=== PATIENT | male | born 1975 | race Caucasian/White ===

== ENCOUNTER 2024-11-25 18:50 | Emergency (ER) | payer OTHER, SELFPAY ==
--- NOTE | ~2024-11-25 | CT_ITS ---
CT abdomen pelvis w con INDICATION:RUQ pain . COMPARISON: None. TECHNIQUE: Axial images of the abdomen and pelvis were obtained following infusion of 100 mL Isovue 300. Dose optimization technique was utilized. FINDINGS: The lung bases are clear. The liver parenchyma is unremarkable. No intrahepatic mass or ductal dilatation is evident. The gallbladder is unremarkable. The pancreas and spleen are normal in appearance. The adrenal glands are symmetric in size. The kidneys demonstrate symmetric uptake and excretion of contrast. No cystic mass is evident. There is no solid mass. There is no hydronephrosis. The stomach and bowel loops are unremarkable. The appendix is normal in appearance. Fat-containing periumbilical hernia. The bladder and rectum are normal. No free intraperitoneal fluid or air is evident. There is no significant retroperitoneal lymphadenopathy. The aorta, visceral vessels and renal arteries demonstrate normal caliber and patency. The lower thoracic and lumbar vertebrae are in normal alignment. IMPRESSION: No acute abnormality is noted in the abdomen and pelvis. Fat-containing periumbilical hernia. All CT scans at this facility are performed using low dose modulation techniques as appropriate to perform exam including the following: automated exposure control; use of iterative reconstruction technique; adjustment of the mA and/or kV according to patient size (this includes techniques or standardized protocols for targeted exams where dose is matched to indication/reason for exam). Reviewed, dictated and finalized at location S. IMPRESSION: No acute abnormality is noted in the abdomen and pelvis. Fat-containing periumbilical hernia. All CT scans at this facility are performed using low dose modulation techniqu es as appropriate to perform exam including the following: automated exposure c ontrol; use of iterative reconstruction technique; adjustment of the mA and/or kV according to patient size (this includes techniques or standardized protocol s for targeted exams where dose is matched to indication/reason for exam).
[2024-11-25 19:24] VITALS: BP 162/96; PULSE 83; RESP 20; TEMP 36.8; O2SAT 100
[2024-11-25 21:05] LABS: Hematocrit 50.6 % (42.0-52.0); Hemoglobin 17.9 g/dL (14.0-18.0); Immature Granulocyte Percent A 0.9 % (0-0.5); Immature Platelet Fraction Pct 5.9 % (0.9-11.2); Lymphocytes Absolute Auto 3.30 K/mm3 (0.9-3.2); Mean Corpuscular HGB Conc 35.4 g/dl (32-36); Mean Corpuscular Hemoglobin 31.5 pg (26-34); Mean Corpuscular Volume 89.1 fl (80-100); Nucleated Red Blood Cells Absolute Auto 0.000 K/mm3 (0.0-0.012); Nucleated Red Blood Cells Perc 0.0 % (0.0-0.2); Platelet Count Result 119 k/mm3 (150-375); Red Blood Count 5.68 M/mm3 (4.6-6.20); White Blood Count 9.0 K/mm3 (4.5-10.0)
[2024-11-25 21:12] LABS: Add Urine Microscopic? YES; Appearance Urine Clear (Clear); Glucose Urine UA 3+ mg/dL (Negative); Leukocyte Esterase Ur Negative LEU/UL (Negative); Nitrate Urine Negative (Negative); Non Pathogenic Casts 0-2; Specific Grav Ur 1.026 (1.001-1.035)
[2024-11-25 21:16] LABS: Alanine Aminotransferase 58 U/L (6-50); Albumin Level 4.7 g/dL (3.5-5.1); Alkaline Phosphatase 95 U/L (38-126); Anion Gap 10 mmol/L (4-12); Aspartate Amino Transferase 46 U/L (17-59); Bilirubin,Total 1.4 mg/dL (0.2-1.3); Blood Urea Nitrogen 15 mg/dL (9-20); Calcium 9.1 mg/dL (8.4-10.2); Carbon Dioxide 28 mmol/L (22-30); Chloride 99 mmol/L (98-107); Estimated CRCL calculation 150 ml/min; Estimated Glomerular Filt Rate > 60; Glucose 219 mg/dL (65-110); Lipase 157 U/L (23-300); Potassium 3.9 mmol/L (3.4-5.0); Sodium 137 mmol/L (137-145); Total Protein 8.5 g/dL (6.3-8.2)
--- NOTE | 2024-11-25 22:13 | ED.ABDPAIN ---
HPI - Abdominal Pain General Chief Complaint: Abdominal Pain Stated Complaint: RUQ abd pain Time Seen by Provider: 11/25/24 21:36 History of Present Illness HPI narrative: 49-year-old otherwise healthy male presenting to the emergency department with right upper quadrant abdominal pain. Patient states he has had an issue with this pancreas once before several years ago but on follow-up head resolution. Did not remember what was or if he had any pancreatitis or something similar. States the symptoms are going on for last 3 weeks. Had a doctor appointment today and was advised to come to the ER. Denies any fever, chills, nausea, vomiting, back pain, chest pain shortness a breath. Pain does not radiate anywhere and is localized underneath his right-sided rib cage. Never had any workup for this. Denies any traumatic injuries or recent illnesses. Related Data Allergies Allergy/AdvReac Type Severity Reaction Status Date / Time No Known Allergies Allergy Verified 11/25/24 18:50 Review of Systems Review of Systems: As reviewed above in HPI Exam Narrative: GENERAL: [Well-appearing, well-nourished, and in no acute distress.] HEAD: [Normocephalic, atraumatic.] EYES: [PERRLA and EOMI.] ENT: Nares clear, no rhinorrhea or epistaxis. Mucous membranes moist. NECK: Supple. CHEST: [Clear to auscultation. No respiratory distress.] HEART: [Regular rate and rhythm]. No murmur heard. [Normal peripheral pulses.] ABDOMEN: Soft and nondistended, reproducible tenderness in the right-sided upper quadrant, negative [place] sign, no rebound tenderness, [No rigidity or guarding] EXTREMITIES: Normal range of motion. [No edema.] SKIN: Warm, dry, no rash. NEURO: [No focal deficits]. Alert and oriented [x3.] PSYCH: [Normal mood and affect.] Course Vital Signs Vital signs: Vital Signs Temperature 36.8 C 11/25/24 19:24 Pulse Rate 83 11/25/24 19:24 Respiratory Rate 20 11/25/24 19:24 Blood Pressure 162/96 H 11/25/24 19:24 Pulse Oximetry 100 11/25/24 19:24 Temperature 36.8 C 11/25/24 19:24 Pulse Rate 83 11/25/24 19:24 Respiratory Rate 20 11/25/24 19:24 Blood Pressure 162/96 H 11/25/24 19:24 Pulse Oximetry 100 11/25/24 19:24 MDM - Abdominal Pain MDM Narrative Medical decision making narrative: 49-year-old otherwise healthy male presenting to the emergency department with right upper quadrant abdominal pain. Patient states he has had an issue with this pancreas once before several years ago but on follow-up head resolution. Did not remember what was or if he had any pancreatitis or something similar. States the symptoms are going on for last 3 weeks. Had a doctor appointment today and was advised to come to the ER. Denies any fever, chills, nausea, vomiting, back pain, chest pain shortness a breath. Pain does not radiate anywhere and is localized underneath his right-sided rib cage. Never had any workup for this. Denies any traumatic injuries or recent illnesses. Patient has reproducible tenderness in his right upper quadrant but no rebound guarding or Cartagena sign. Vital signs show some mild hypertension but no tachycardia, fever, hypoxemia or blood pressure anomalies. Symptoms consistent with potential biliary colic, cholecystitis, pancreatitis, less likely renal colic or musculoskeletal abdominal wall pain. Workup underway including laboratory studies and a CT scan. Patient declined any analgesia at this time. 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 CT scan shows no acute process. Bilirubin mildly elevated, other LFTs are unremarkable aside from some ALT elevation. No leukocytosis or fever. Pain is tolerable. Safe for discharge home with PCP follow-up with no acute abnormalities identified today. Given return precautions. Medical Records Attestation: I reviewed the patient's medical records. Lab Data Attestation: I reviewed the patient's lab results. 11/25/24 20:40 11/25/24 20:40 Labs: Lab Results 11/25/24 Range/Units 20:40 WBC 9.0 (4.5-10.0) K/mm3 RBC 5.68 (4.6-6.20) M/mm3 Hgb 17.9 (14.0-18.0) g/dL Hct 50.6 (42.0-52.0) % MCV 89.1 (80-100) fl MCH 31.5 (26-34) pg MCHC 35.4 (32-36) g/dl RDW 12.4 (11.5-14.5) % Plt Count 119 L (150-375) k/mm3 MPV 10.9 H (7.4-10.4) fl Immature Gran % (Auto) 0.9 H (0-0.5) % Neut % (Auto) 52.9 (45.5-73.1) % Lymph % (Auto) 36.5 (18.3-44.2) % [place] % (Auto) 8.0 (2.6-8.5) % Eos % (Auto) 1.0 (0-4.4) % Baso % (Auto) 0.7 (0.2-1.2) % Lymph # (Auto) 3.30 H (0.9-3.2) K/mm3 [place] # (Auto) 0.7 H (0.1-0.6) K/mm3 Eos # (Auto) 0.1 (0-0.3) K/mm3 Baso # (Auto) 0.1 (0.0-0.1) K/mm3 Abs Immat Gran (auto) 0.08 H (0.00-0.031) K/mm3 Absolute Neuts (auto) 4.8 (1.3-6.7) K/mm3 Absolute Nucleated RBC 0.000 (0.0-0.012) K/mm3 Nucleated RBC % 0.0 (0.0-0.2) % % Immature Plt Fraction 5.9 (0.9-11.2) % Sodium 137 (137-145) mmol/L Potassium 3.9 (3.4-5.0) mmol/L Chloride 99 (98-107) mmol/L Carbon Dioxide 28 (22-30) mmol/L Anion Gap 10 (4-12) mmol/L BUN 15 (9-20) mg/dL Creatinine 0.61 L (0.7-1.3) mg/dL Estim Creat Clear Calc 150 ml/min Estimated GFR > 60 (59 - ) Glucose 219 H (65-110) mg/dL Calcium 9.1 (8.4-10.2) mg/dL Total Bilirubin 1.4 H (0.2-1.3) mg/dL AST 46 (17-59) U/L ALT 58 H (6-50) U/L Alkaline Phosphatase 95 (38-126) U/L Total Protein 8.5 H (6.3-8.2) g/dL Albumin 4.7 (3.5-5.1) g/dL Lipase 157 (23-300) U/L Urine Color Yellow (Yellow) Urine Appearance Clear (Clear) Urine pH 6.0 (5.0-9.0) Ur Specific [place] 1.026 (1.001-1.035) Urine Protein 1+ H (Negative) mg/dL Urine Glucose (UA) 3+ H (Negative) mg/dL Urine Ketones Trace H (Negative) mg/dL Ur Blood (Man) Negative (Negative) Urine Nitrate Negative (Negative) Urine Bilirubin Negative (Negative) Urine Urobilinogen 1.0 (<2.0) mg/dL Leukocyte Esterase Rfl Negative (Negative) SANA/UL Urine RBC 0-2 (0-2) /hpf Urine WBC 0-5 (0-3) /hpf Ur Squamous Epith Cells None seen (Few) /hpf Urine Bacteria None seen /hpf Urine Casts 0-2 Imaging Data Attestation: I personally reviewed and interpreted this imaging study as follows: My impression: Impressions Abdomen/Pelvis CT 11/25/24 22:14 IMPRESSION: No acute abnormality is noted in the abdomen and pelvis. Fat-containing periumbilical hernia. All CT scans at this facility are performed using low dose modulation techniques as appropriate to perform exam including the following: automated exposure control; use of iterative reconstruction technique; adjustment of the mA and/or kV according to patient size (this includes techniques or standardized protocols for targeted exams where dose is matched to indication/reason for exam). Radiologist's impression: ITS Impressions Abdomen/Pelvis CT 11/25/24 22:14 IMPRESSION: No acute abnormality is noted in the abdomen and pelvis. Fat-containing periumbilical hernia. All CT scans at this facility are performed using low dose modulation techniques as appropriate to perform exam including the following: automated exposure control; use of iterative reconstruction technique; adjustment of the mA and/or kV according to patient size (this includes techniques or standardized protocols for targeted exams where dose is matched to indication/reason for exam). Discharge Plan Discharge Clinical Impression: Abdominal pain, right upper quadrant, Low platelet count, Elevated bilirubin Patient Disposition: Home Condition: Stable Instructions: Antibiotic Form, Liver Disease Diet (DC) Additional Instructions: Your CT scan does not show any acute abnormalities such as a gallstone or blocking duct, no signs of infection or any inflammation noted around the pancreas, gallbladder, kidney, or any other intra-abdominal or pelvic organs. Your laboratory studies do show a slightly low platelet count as well as a slightly elevated bilirubin level which could point towards a liver pathology as the source of your pain and symptoms. Overall no urgent or emergent concerns were identified today and this needs to be followed up with with your primary care provider for further evaluation and testing. Refer to your doctor for close ER follow-up and return with any new or worsening/developing complaints such as worsening pain, developing fevers, skin discoloration, easy bleeding or bruising or any other urgent/emergent concerns. Patient Language: Omani Follow-up/Referrals: PHYSICIAN,APPLICATION RELEASE MANAGER [Primary Care Provider, Internal Medicine] Time of Disposition: 23:15
== END 2024-11-25 23:26 | disposition home or self-care (01) ==
PROVIDERS: Emergency Provider Student in an Organized Health Care Education/Training Program
DX: R10.11 Right upper quadrant pain (principal); D69.6 Thrombocytopenia, unspecified; R17 Unspecified jaundice; K42.9 Umbilical hernia without obstruction or gangrene
CPT/HCPCS: 36415; 74177; 80053; 81001; 83690; 85025; 85055; 99284; Q9967